=== PATIENT | male | born 1965 ===

== ENCOUNTER 2017-03-09 12:51 | Emergency (ER) | payer MEDICAID, OTHER ==
[2017-03-09 13:00] VITALS: BP 134/88; PULSE 88; RESP 16; TEMP 99; O2SAT 100
--- NOTE | 2017-03-09 13:20 | ED PDOC ---
Upper Extremity Pain/Injury Time Seen by Provider: 03/09/17 13:18 Chief Complaint (Nursing): Finger,Hand,&Wrist Chief Complaint (Provider): hand injury History Per: Patient (51 y/o male with left hand injury that occurred 6 hours prior to ED arrival when he dropped a door on his hand. Is right hand dominant. Notes pain along 3rd/fourth digits. No laceration noted.) Past Medical History Reviewed: Historical Data, Nursing Documentation, Vital Signs Vital Signs: Last Vital Signs Temp 99.0 F 03/09/17 12:56 Pulse 88 03/09/17 12:56 Resp 16 03/09/17 12:56 BP 134/88 03/09/17 12:56 Pulse Ox 100 03/09/17 12:56 - Family History Family History: States: No Known Family Hx - Home Medications Home Medications: Ambulatory Orders Medication Instructions Recorded Ibuprofen [Motrin] 600 mg PO Q8 PRN #21 tab 03/09/17 oxyCODONE/Acetaminophen [Percocet 1 ea PO Q6 PRN #5 tab 03/09/17 5/325 mg Tab] - Allergies Allergies/Adverse Reactions: Allergies Allergy/AdvReac Type Severity Reaction Status Date / Time No Known Allergies Allergy Verified 03/09/17 12:56 Review of Systems ROS Statement: Except As Marked, All Systems Reviewed And Found Negative Musculoskeletal: Positive for: Hand Pain Physical Exam - Reviewed Nursing Documentation Reviewed: Yes Vital Signs Reviewed: Yes - Physical Exam Appears: Positive for: Well, Non-toxic, No Acute Distress Head Exam: Positive for: ATRAUMATIC, NORMAL INSPECTION, NORMOCEPHALIC Skin: Positive for: Normal Color, Warm, DRY Eye Exam: Positive for: EOMI, Normal appearance, PERRL ENT: Positive for: Normal ENT Inspection Neck: Positive for: Normal, Painless ROM Cardiovascular/Chest: Positive for: Regular Rate, Rhythm Respiratory: Positive for: CNT, Normal Breath Sounds Gastrointestinal/Abdominal: Positive for: Normal Exam, Bowel Sounds, Soft Back: Positive for: Normal Inspection Extremity: Positive for: Normal ROM, Swelling (ecchymosis/swelling distal phalanx third digit. Able flex and extend by PIP/DIP fourth/fifth digit.) Neurologic/Psych: Positive for: Alert, Oriented - ECG O2 Sat by Pulse Oximetry: 100 - Progress ED Course And Treament: motrin 600 mg x 1 dose Xry of hand: no fx noted Placed in finger splint Disposition - Clinical Impression Clinical Impression: Finger injury - Patient ED Disposition Is Patient to be Admitted: No - Disposition Referrals: Osmin Oh MD [Medical Doctor] - Disposition: Routine/Home Disposition Time: 13:38 Condition: FAIR Prescriptions: Ibuprofen [Motrin] 600 mg PO Q8 PRN #21 tab PRN Reason: Pain, Moderate (4-7) oxyCODONE/Acetaminophen [Percocet 5/325 mg Tab] 1 ea PO Q6 PRN #5 tab PRN Reason: Pain, Severe (8-10) Instructions: Hematoma (ED), Finger Sprain (ED) Forms: [facility] ED School/Work Excuse Print Language: MONGOLIAN
--- NOTE | 2017-03-09 16:46 | RAD ---
PROCEDURE: Left Hand Radiographs. HISTORY: injury to hand COMPARISON: None. FINDINGS: BONES: No acute fracture. Diffuse osteopenia. JOINTS: Osteoarthritic changes primarily distal and to a lesser extent proximal interphalangeal joint distribution. SOFT TISSUES: Normal. OTHER FINDINGS: None. IMPRESSION: No acute findings related to/accounting for the clinical presentation.
== END 2017-03-09 14:58 | disposition home or self-care (01) ==
LOC: H.ER 12:51
DX: S69.92XA Unspecified injury of left wrist, hand and finger(s), initial encounter (principal); W22.8XXA Striking against or struck by other objects, initial encounter; Y99.0 Civilian activity done for income or pay

== ENCOUNTER 2018-12-16 05:57 | Day surgery (SDC) | payer OTHER, MEDICAID ==
[2018-12-09 10:24] VITALS: BMI 29.2
[2018-12-16 06:52] VITALS: RESP 18; O2SAT 97
[2018-12-16] MEDS ORDERED: Succinylcholine Chloride 20 mg/ml Syr (5 ml) IV ONE (07:07)
[2018-12-16] MEDS ORDERED: Propofol 10 mg/ml Inj (20 ML) ONE ×4 (07:07→10:15)
[2018-12-16] MEDS ORDERED: Phenylephrine 10 mg/ml Inj ONE (07:10)
[2018-12-16] MEDS ORDERED: Lactated Ringer's 1,000 ML IV ONE ×4 (07:10→15:30)
[2018-12-16] MEDS ORDERED: Remifentanil 2 MG PDS IV ONE ×4 (07:21→13:03)
[2018-12-16] MEDS ORDERED: Lidocaine 1% Inj (20ml) ONE (07:38)
[2018-12-16] MEDS ORDERED: MethylPREDNISolone Depo 40 mg/ml Inj ONE (07:38)
[2018-12-16] MEDS ORDERED: Liquid Adhesive TOP ONE ×2 (07:39→13:52)
[2018-12-16] MEDS ORDERED: Sodium Chloride 0.9% 500 ML IV ONE (08:20)
[2018-12-16] MEDS ORDERED: Midazolam 2 MG/2 ML VIAL ONE (08:21)
[2018-12-16] MEDS ORDERED: cefTRIAXone (Rocephin) 1 gm Inj ONE (09:17)
[2018-12-16] MEDS ORDERED: Dexamethasone 4 mg/1 ml ONE (09:22)
[2018-12-16] MEDS ORDERED: Tranexamic Acid 1,000 MG in Sodium Chloride 0.9% 100 ML IVPB ONE (09:24)
[2018-12-16] MEDS ORDERED: Thrombin Topical 5,000 Int Units Spray Kit ONE (12:13)
[2018-12-16] MEDS ORDERED: Absorbable Gelatin Sponge Size 12-7 ONE (12:13)
[2018-12-16] MEDS ORDERED: Thrombin Topical 5,000 Int Units Spray Kit TOP ONE (12:38)
[2018-12-16] MEDS ORDERED: Absorbable Gelatin Sponge Size 12-7 TP ONE (12:38)
[2018-12-16] MEDS ORDERED: cefTRIAXone (Rocephin) 1 gm Inj IM ONE (12:40)
[2018-12-16] MEDS ORDERED: MethylPREDNISolone Depo 40 mg/ml Inj IM ONE (13:47)
[2018-12-16] MEDS ORDERED: Lidocaine 1% Inj (20ml) IJ ONE (13:47)
[2018-12-16] MEDS ORDERED: Bacitracin Ointment 30 GM TUBE ONE (13:50)
[2018-12-16] MEDS ORDERED: HYDROmorphone 0.5 mg/0.5 ml ISec IVP PRN (14:08)
[2018-12-16] MEDS ORDERED: Lactated Ringer's 1,000 ML IV SCH (14:15)
[2018-12-16] MEDS: HYDROmorphone 0.5 mg/0.5 ml ISec IVP PRN ×7 (14:19→16:05)
[2018-12-16] MEDS ORDERED: HYDROmorphone 0.5 mg/0.5 ml ISec ONE (15:37)
[2018-12-16 18:11] VITALS: BP 147/85; PULSE 105; TEMP 97.5
--- NOTE | 2018-12-17 09:53 | RAD ---
Date of service: 12/16/2018 PROCEDURE: Intraoperative Fluoroscopy. HISTORY: FLUOROSCOPY FINDINGS: Fluoroscopic assistance was provided. Fluoroscopy time = 15.4 sec. Radiation dose = 1.72 mGy. Please refer to the operative report from EMILY Brar.
== END 2018-12-16 18:30 | disposition home or self-care (01) ==
LOC: H.OPSURG 05:57
PROVIDERS: ATTEND Orthopaedic Surgery Orthopaedic Surgery of the Spine
DX: M50.20 Other cervical disc displacement, unspecified cervical region (principal); M54.12 Radiculopathy, cervical region; E78.5 Hyperlipidemia, unspecified; I10 Essential (primary) hypertension; I25.2 Old myocardial infarction; Z87.891 Personal history of nicotine dependence
CPT/HCPCS: 20937; 22551; 22552; 22845; 22853; 88304; C1713; J0131; J0690; J0696; J1030; J1100; J1170; J2001; J2250; J2370; J2405; J2704; J2765; J3010; J7030; J7120